=== PATIENT | female | born 1980 | race Caucasian/White ===

== ENCOUNTER 2018-09-14 08:07 | Outpatient (CLI) | payer OTHER | END 2018-09-14 15:00 | disposition home or self-care (01) | LOC: LAB 08:07 | DX: Z00.00 Encounter for general adult medical examination without abnormal findings (principal) ==

== ENCOUNTER 2018-11-10 09:37 | Outpatient (CLI) | payer OTHER | END 2018-11-10 09:40 | disposition home or self-care (01) | LOC: LAB 09:37 | DX: N39.0 Urinary tract infection, site not specified (principal) ==

== ENCOUNTER 2018-11-22 15:16 | Outpatient (CLI) | payer OTHER | END 2018-11-22 16:00 | disposition home or self-care (01) | LOC: RAD 15:16 | DX: M17.0 Bilateral primary osteoarthritis of knee (principal) ==

== ENCOUNTER 2020-04-29 16:05 | Outpatient (CLI) | payer OTHER | END 2020-04-29 20:00 | disposition home or self-care (01) | LOC: RAD 16:05 | PROVIDERS: ATTEND Chiropractor | DX: M99.01 Segmental and somatic dysfunction of cervical region (principal); M99.02 Segmental and somatic dysfunction of thoracic region; M99.03 Segmental and somatic dysfunction of lumbar region; M99.05 Segmental and somatic dysfunction of pelvic region ==

== ENCOUNTER 2020-07-15 06:44 | Outpatient (CLI) | payer OTHER | END 2020-07-15 06:50 | disposition home or self-care (01) | LOC: LAB 06:44 | PROVIDERS: ATTEND General Practice | DX: E78.2 Mixed hyperlipidemia (principal); Z00.8 Encounter for other general examination; Z13.6 Encounter for screening for cardiovascular disorders; Z12.11 Encounter for screening for malignant neoplasm of colon ==

== ENCOUNTER 2021-07-07 08:46 | Outpatient (CLI) | payer OTHER | END 2021-07-07 15:56 | disposition home or self-care (01) | LOC: LAB 08:46 | PROVIDERS: ATTEND Emergency Medicine Pediatric Emergency Medicine | DX: Z03.818 Encounter for observation for suspected exposure to other biological agents ruled out (principal) ==

== ENCOUNTER → 2021-07-14 08:40 | Outpatient (CLI) | payer OTHER | END | disposition home or self-care (01) | LOC: LAB 08:40 | PROVIDERS: ATTEND Emergency Medicine Pediatric Emergency Medicine | DX: Z20.828 Contact with and (suspected) exposure to other viral communicable diseases (principal) ==

== ENCOUNTER 2021-07-21 09:12 | Outpatient (CLI) | payer OTHER | END 2021-07-21 09:15 | disposition home or self-care (01) | LOC: LAB 09:12 | PROVIDERS: ATTEND Emergency Medicine Pediatric Emergency Medicine | DX: Z03.818 Encounter for observation for suspected exposure to other biological agents ruled out (principal) ==

== ENCOUNTER 2021-08-03 08:47 | Outpatient (CLI) | payer OTHER | END 2021-08-03 08:48 | disposition home or self-care (01) | LOC: LAB 08:47 | PROVIDERS: ATTEND Emergency Medicine Pediatric Emergency Medicine | DX: Z03.818 Encounter for observation for suspected exposure to other biological agents ruled out (principal) ==

== ENCOUNTER 2021-08-09 09:11 | Outpatient (CLI) | payer OTHER | END 2021-08-09 09:14 | disposition home or self-care (01) | LOC: LAB 09:11 | PROVIDERS: ATTEND Emergency Medicine Pediatric Emergency Medicine | DX: Z03.818 Encounter for observation for suspected exposure to other biological agents ruled out (principal) ==

== ENCOUNTER 2021-08-19 08:29 | Outpatient (CLI) | payer OTHER | END 2021-08-19 15:00 | disposition home or self-care (01) | LOC: LAB 08:29 | PROVIDERS: ATTEND Emergency Medicine Pediatric Emergency Medicine | DX: Z03.818 Encounter for observation for suspected exposure to other biological agents ruled out (principal) ==

== ENCOUNTER → 2021-08-26 08:30 | Outpatient (CLI) | payer OTHER | END | disposition home or self-care (01) | LOC: LAB 08:30 | PROVIDERS: ATTEND Emergency Medicine Pediatric Emergency Medicine | DX: Z03.818 Encounter for observation for suspected exposure to other biological agents ruled out (principal) ==

== ENCOUNTER 2021-09-09 09:05 | Outpatient (CLI) | payer OTHER | END 2021-09-09 09:06 | disposition home or self-care (01) | LOC: LAB 09:05 | PROVIDERS: ATTEND Emergency Medicine Pediatric Emergency Medicine | DX: Z03.818 Encounter for observation for suspected exposure to other biological agents ruled out (principal) ==

== ENCOUNTER → 2021-09-30 09:12 | Outpatient (CLI) | payer OTHER | END | disposition home or self-care (01) | LOC: LAB 09:12 | PROVIDERS: ATTEND Emergency Medicine Pediatric Emergency Medicine | DX: Z03.818 Encounter for observation for suspected exposure to other biological agents ruled out (principal) ==

== ENCOUNTER → 2021-10-07 08:23 | Outpatient (CLI) | payer OTHER | END | disposition home or self-care (01) | LOC: LAB 08:23 | PROVIDERS: ATTEND Emergency Medicine Pediatric Emergency Medicine | DX: Z03.818 Encounter for observation for suspected exposure to other biological agents ruled out (principal) ==

== ENCOUNTER → 2021-10-14 | Outpatient (CLI) | payer OTHER | END | disposition home or self-care (01) | LOC: LAB 08:34 | PROVIDERS: ATTEND Emergency Medicine Pediatric Emergency Medicine | DX: Z03.818 Encounter for observation for suspected exposure to other biological agents ruled out (principal) ==

== ENCOUNTER 2021-10-25 10:29 | Outpatient (CLI) | payer OTHER | END 2021-10-25 10:30 | disposition home or self-care (01) | LOC: LAB 10:29 | PROVIDERS: ATTEND Emergency Medicine Pediatric Emergency Medicine | DX: Z03.818 Encounter for observation for suspected exposure to other biological agents ruled out (principal) ==

== ENCOUNTER → 2021-10-28 10:03 | Outpatient (CLI) | payer OTHER | END | disposition home or self-care (01) | LOC: LAB 10:03 | PROVIDERS: ATTEND Emergency Medicine Pediatric Emergency Medicine | DX: Z03.818 Encounter for observation for suspected exposure to other biological agents ruled out (principal) ==

== ENCOUNTER 2021-11-04 08:42 | Outpatient (CLI) | payer OTHER | END 2021-11-04 08:43 | disposition home or self-care (01) | LOC: LAB 08:42 | PROVIDERS: ATTEND Emergency Medicine Pediatric Emergency Medicine | DX: Z03.818 Encounter for observation for suspected exposure to other biological agents ruled out (principal) ==

== ENCOUNTER 2021-11-11 12:54 | Outpatient (CLI) | payer OTHER | END 2021-11-11 12:57 | disposition home or self-care (01) | LOC: LAB 12:54 | PROVIDERS: ATTEND Emergency Medicine Pediatric Emergency Medicine | DX: Z03.818 Encounter for observation for suspected exposure to other biological agents ruled out (principal) ==

== ENCOUNTER 2021-11-18 11:15 | Outpatient (CLI) | payer OTHER | END 2021-11-18 11:30 | disposition home or self-care (01) | LOC: LAB 11:15 | PROVIDERS: ATTEND Preventive Medicine Occupational Medicine | DX: U07.1 COVID-19 (principal) ==

== ENCOUNTER 2021-11-25 08:26 | Outpatient (CLI) | payer OTHER | END 2021-11-25 08:27 | disposition home or self-care (01) | LOC: LAB 08:26 | PROVIDERS: ATTEND Preventive Medicine Occupational Medicine | DX: U07.1 COVID-19 (principal) ==

== ENCOUNTER 2021-12-03 08:46 | Outpatient (CLI) | payer OTHER | END 2021-12-03 08:48 | disposition home or self-care (01) | LOC: LAB 08:46 | DX: Z20.828 Contact with and (suspected) exposure to other viral communicable diseases (principal); Z03.818 Encounter for observation for suspected exposure to other biological agents ruled out ==

== ENCOUNTER → 2021-12-24 14:26 | Outpatient (CLI) | payer OTHER | END | disposition home or self-care (01) | LOC: LAB 14:26 | PROVIDERS: ATTEND Preventive Medicine Occupational Medicine | DX: Z20.828 Contact with and (suspected) exposure to other viral communicable diseases (principal) ==